=== PATIENT | male | born 1965 | race Caucasian/White ===

== ENCOUNTER 2021-06-02 15:13 | Inpatient (IN) | payer MEDICARE, SELFPAY ==
[2021-06-02 16:44] LABS: #Lymphocytes 1.8 thou/uL (1.20-3.40); #Monocytes 0.6 thou/uL (0.11-0.59); #Neutrophils 6.6 thou/uL (1.40-6.50); %Basophils 0.3 % (0.0-1.0); %Eosinophils 0.3 % (0.0-10.0); %Lymphocytes 19.7 % (21.0-51.0); %Monocytes 6.8 % (0.0-10.0); %Neutrophils 72.9 % (42.0-75.0); Hemoglobin 12.2 g/dL (14.0-18.0); Mean Corpuscular HGB CONC 34.1 g/dL (32.0-36.0); Mean Corpuscular Hemoglobin 34.7 pg (27.0-31.0); Mean Platelet Volume 6.7 fL (7.4-10.4); Platelet Count 275 thou/uL (130-400); RBC Distribution Width 12.4 % (11.5-14.5); Red Blood Cell (RBC) Count 3.52 mill/uL (4.70-6.10); White Blood Cell (WBC) Count 9.1 thou/uL (4.8-10.8)
[2021-06-02 17:02] LABS: ALT (SGPT) 13 U/L (8-55); AST (SGOT) 13 U/L (5-34); Albumin 3.5 g/dL (3.5-5.0); Alkaline Phosphatase 212 U/L (40-110); Anion Gap 17 mmol/L (10-20); BUN (Urea Nitrogen) 15 mg/dL (8.4-25.7); Bilirubin, Total 0.4 mg/dL (0.2-1.2); Calc. Creatinine Clearance 0 mL/min (70-130); Carbon Dioxide 23 mmol/L (22-29); Chloride 95 mmol/L (98-107); Globulin 3.1 g/dL (2.4-3.5); Potassium 4.9 mmol/L (3.5-5.1); Protein, Total 6.6 g/dL (6.0-8.3); Sodium 130 mmol/L (136-145)
[2021-06-02 17:19] LABS: Glucose 727 mg/dL (70-105)
[2021-06-02 18:13] LABS: Acetaminophen Less than 6.0 mcg/mL (10.0-30.0); Alcohol Less than 10 mg/dL (Less than 10); Salicylate Less than 8.0 mg/dL (15.0-30.0)
[2021-06-02 18:47] LABS: Amphetamine Not Detected (NotDetected); Barbiturates Screen Not Detected (NotDetected); Benzodiazepine Screen Not Detected (NotDetected); Cocaine Metabolite Screen Not Detected (NotDetected); Methadone Not Detected (NotDetected); Methamphetamine Not Detected (NotDetected); Opiate Screen Not Detected (NotDetected); Oxycodone Screen Not Detected (NotDetected); Phencyclidine (PCP) Not Detected (NotDetected); THC/Cannabinoid Screen Not Detected (NotDetected); Tricyclic Screen Not Detected (NotDetected)
[2021-06-02 19:06] LABS: Bilirubin Negative (Negative); Blood, Urine Negative (Negative); Clarity Clear (Clear); Glucose, Urine (Dipstick) Greater than 1000 mg/dL (Negative); Ketone, Urine 10 mg/dL (Negative); Leukocyte Negative Leu/uL (Negative); Nitrite Negative (Negative); Protein, Urine (Dipstick) Negative (Neg-Trace); Urobilinogen Normal mg/dL (Less than 2)
[2021-06-02] MEDS ORDERED: Potassium Chloride 20 MEQ/100 ML PREMIX BAG ONE (19:07)
[2021-06-02] MEDS ORDERED: INSULIN REGULAR IN 0.9 % NACL 100 UNIT/100 ML BAG ONE (19:10)
[2021-06-02] MEDS ORDERED: NS 0.9% w/ 20 MEQ KCL 1,000 ML IV SCH (19:30)
[2021-06-02 20:04] LABS: HIV (1/2) Antibody/Antigen Non-Reactive (NonReactive); HIV 1/2 INDEX 0.09 S/CO (<1.00)
[2021-06-02] MEDS ORDERED: HumaLOG 300 UNITS/3 ML VIAL SC SCH (20:30)
[2021-06-02] MEDS ORDERED: Ondansetron PF 4 MG/2 ML Vial IVP PRN (20:56)
[2021-06-02] MEDS ORDERED: Dextrose 5% in Water 1,000 ML IV PRN (20:56)
[2021-06-02] MEDS ORDERED: Dextrose 50% Abboject 50 ML SYRINGE SLOW IVP PRN (20:56)
[2021-06-02] MEDS ORDERED: Ondansetron ODT 4 MG TAB PO PRN (20:56)
[2021-06-02] MEDS ORDERED: Acetaminophen 650 MG Suppository PR PRN (20:56)
[2021-06-02] MEDS ORDERED: HYDROcodone/Acetaminophen 7.5/325 mg Tablet PO PRN (22:36)
[2021-06-02] MEDS ORDERED: HumaLOG 300 UNITS/3 ML VIAL ONE (22:59)
[2021-06-03] MEDS: HumaLOG 300 UNITS/3 ML VIAL SC PRN ×4 (00:34→22:22)
[2021-06-03] MEDS: Sodium Chloride 0.9% 1,000 ML IV SCH ×2 (00:34→10:01)
[2021-06-03 01:12] VITALS: BMI 18.2
[2021-06-03] MEDS ORDERED: Sterile Water 10 ML VIAL FS PRN (03:00)
[2021-06-03] MEDS ORDERED: Ziprasidone 20 MG VIAL IM SCH (03:00)
[2021-06-03 05:25] LABS: #Lymphocytes 1.9 thou/uL (1.20-3.40); #Monocytes 0.7 thou/uL (0.11-0.59); #Neutrophils 3.9 thou/uL (1.40-6.50); %Basophils 0.5 % (0.0-1.0); %Eosinophils 0.7 % (0.0-10.0); %Lymphocytes 29.2 % (21.0-51.0); %Monocytes 10.8 % (0.0-10.0); %Neutrophils 58.8 % (42.0-75.0); Hemoglobin 9.9 g/dL (14.0-18.0); Mean Corpuscular HGB CONC 33.1 g/dL (32.0-36.0); Mean Corpuscular Hemoglobin 33.7 pg (27.0-31.0); Mean Platelet Volume 6.7 fL (7.4-10.4); Platelet Count 216 thou/uL (130-400); RBC Distribution Width 12.7 % (11.5-14.5); Red Blood Cell (RBC) Count 2.94 mill/uL (4.70-6.10); White Blood Cell (WBC) Count 6.6 thou/uL (4.8-10.8)
[2021-06-03 05:48] LABS: Anion Gap 11 mmol/L (10-20); BUN (Urea Nitrogen) 12 mg/dL (8.4-25.7); Calc. Creatinine Clearance 111 mL/min (70-130); Calcium 8.6 mg/dL (7.8-10.44); Carbon Dioxide 25 mmol/L (22-29); Chloride 106 mmol/L (98-107); Glucose 95 mg/dL (70-105); Potassium 3.6 mmol/L (3.5-5.1); Sodium 138 mmol/L (136-145)
[2021-06-03 06:40] LABS: Hemoglobin A1c Greater than 14.0 % (4.0-6.0)
[2021-06-03] MEDS ORDERED: NPH, Human Insulin Isophane 300 UNIT/3 ML VIAL SC SCH ×2 (08:45)
[2021-06-03] MEDS: Enoxaparin Sodium 40 MG/0.4 ML SYRINGE SC SCH (10:03)
[2021-06-03 14:33] LABS: SARS-CoV-2 PCR by NAA Not Detected (NotDetected)
[2021-06-03] MEDS ORDERED: HumaLOG 300 UNITS/3 ML VIAL SC SCH (15:30)
[2021-06-03] MEDS ORDERED: Gabapentin 100 MG CAP PO PRN (16:38)
[2021-06-03] MEDS ORDERED: Colchicine 0.6 MG TAB PO SCH (17:45)
[2021-06-03] MEDS: Acetaminophen 325 MG TAB PO PRN (22:21)
[2021-06-03] MEDS: NPH, Human Insulin Isophane 300 UNIT/3 ML VIAL SC SCH (22:21)
[2021-06-03] MEDS: Colchicine 0.6 MG TAB PO SCH (22:21)
[2021-06-04] MEDS: HumaLOG 300 UNITS/3 ML VIAL SC PRN ×5 (00:06→18:17)
[2021-06-04 05:29] LABS: Thyroid Stimulating Hormone 3.4116 uIU/mL (0.35-4.94)
[2021-06-04] MEDS: NPH, Human Insulin Isophane 300 UNIT/3 ML VIAL SC SCH ×2 (09:00→20:38)
[2021-06-04] MEDS: Enoxaparin Sodium 40 MG/0.4 ML SYRINGE SC SCH (09:00)
[2021-06-04] MEDS: Colchicine 0.6 MG TAB PO SCH ×2 (09:00→20:38)
[2021-06-04] MEDS ORDERED: metFORMIN 500 MG TAB PO SCH (09:45)
[2021-06-04] MEDS ORDERED: NPH, Human Insulin Isophane 300 UNIT/3 ML VIAL SC SCH (09:45)
[2021-06-04] MEDS: HumaLOG 300 UNITS/3 ML VIAL SC SCH ×2 (11:18→16:14)
[2021-06-04] MEDS ORDERED: Furosemide 20 MG/2 ML VIAL SLOW IVP SCH (12:45)
[2021-06-04] MEDS: metFORMIN 500 MG TAB PO SCH (16:14)
[2021-06-04] MEDS ORDERED: Aspirin 81 mg Enteric Coated Tablet PO SCH (16:45)
[2021-06-04] MEDS: Acetaminophen 325 MG TAB PO PRN (20:42)
[2021-06-05] MEDS: Acetaminophen 325 MG TAB PO PRN (02:45)
[2021-06-05] MEDS: Colchicine 0.6 MG TAB PO SCH (08:05)
[2021-06-05] MEDS: Enoxaparin Sodium 40 MG/0.4 ML SYRINGE SC SCH (08:05)
[2021-06-05] MEDS: metFORMIN 500 MG TAB PO SCH ×2 (08:05→17:39)
[2021-06-05] MEDS: NPH, Human Insulin Isophane 300 UNIT/3 ML VIAL SC SCH (08:07)
[2021-06-05] MEDS: HumaLOG 300 UNITS/3 ML VIAL SC SCH ×3 (08:09→17:38)
[2021-06-05] MEDS ORDERED: Aspirin 81 mg Enteric Coated Tablet PO SCH (09:00)
[2021-06-05] MEDS: HumaLOG 300 UNITS/3 ML VIAL SC PRN ×2 (12:39→17:39)
[2021-06-05 16:49] VITALS: BP 111/66; TEMP 98.4
[2021-06-05] MEDS ORDERED: Gabapentin 300 MG CAP PO SCH (21:00)
== END 2021-06-05 18:37 | disposition home or self-care (01) | DRG 638 ==
LOC: ERS 15:13 → ERHOLD 20:22 → 2NO 06-03 00:09 → T4-A 06-04 10:53
PROVIDERS: ADMIT Student in an Organized Health Care Education/Training Program; ATTEND Family Medicine
DX: E11.10 Type 2 diabetes mellitus with ketoacidosis without coma (principal); E87.1 Hypo-osmolality and hyponatremia; D53.9 Nutritional anemia, unspecified; F17.210 Nicotine dependence, cigarettes, uncomplicated; E11.51 Type 2 diabetes mellitus with diabetic peripheral angiopathy without gangrene; M54.2 Cervicalgia; E11.40 Type 2 diabetes mellitus with diabetic neuropathy, unspecified; F29 Unspecified psychosis not due to a substance or known physiological condition; Z98.890 Other specified postprocedural states; Z71.6 Tobacco abuse counseling
CPT/HCPCS: 36415; 36416; 70450; 71045; 72050; 72125; 80048; 80053; 80306; 80307; 81003; 82010; 82607; 82746; 83036; 83605; 83880; 84443; 84484; 84550; 85025; 87040; 87389; 93005; 93923; J1650; J1815; J1940; J3480; J3486; J7050; U0003; U0005

== ENCOUNTER 2021-07-24 13:16 | Emergency (ER) | payer MEDICARE ==
[2021-07-24] MEDS ORDERED: Naproxen 500 MG TAB ONE (14:06)
== END 2021-07-24 14:15 | disposition home or self-care (01) ==
LOC: ERS 13:16
DX: G62.9 Polyneuropathy, unspecified (principal); M25.552 Pain in left hip; M25.551 Pain in right hip; M25.512 Pain in left shoulder; M25.511 Pain in right shoulder; G89.29 Other chronic pain; E11.9 Type 2 diabetes mellitus without complications; E78.5 Hyperlipidemia, unspecified; F17.210 Nicotine dependence, cigarettes, uncomplicated

== ENCOUNTER 2021-07-24 22:10 | Emergency (ER) | payer MEDICARE ==
[2021-07-25] MEDS ORDERED: Dicyclomine 20 MG TAB ONE (02:44)
[2021-07-25] MEDS ORDERED: Ondansetron ODT 4 MG TAB ONE (02:44)
== END 2021-07-25 03:43 | disposition home or self-care (01) ==
LOC: ERS 22:10
DX: R11.0 Nausea (principal); R19.7 Diarrhea, unspecified; E11.9 Type 2 diabetes mellitus without complications; E78.5 Hyperlipidemia, unspecified; F17.210 Nicotine dependence, cigarettes, uncomplicated
CPT/HCPCS: 36416; 99283; Q0162

== ENCOUNTER 2021-08-11 18:54 | Emergency (ER) | payer MEDICARE ==
[2021-08-11 19:59] LABS: #Basophils 0.1 thou/uL (0.0-0.2); #Eosinphils 0.2 thou/uL (0.0-0.7); #Lymphocytes 2.2 thou/uL (1.20-3.40); #Neutrophils 4.2 thou/uL (1.40-6.50); %Basophils 0.8 % (0.0-1.0); %Lymphocytes 28.8 % (21.0-51.0); %Monocytes 12.9 % (0.0-10.0); %Neutrophils 55.4 % (42.0-75.0); Hemoglobin 13.5 g/dL (14.0-18.0); Mean Corpuscular HGB CONC 32.3 g/dL (32.0-36.0); Mean Corpuscular Hemoglobin 30.6 pg (27.0-31.0); Mean Corpuscular Volume 94.8 fL (78.0-98.0); Mean Platelet Volume 7.8 fL (7.4-10.4); Platelet Count 175 thou/uL (130-400); RBC Distribution Width 13.3 % (11.5-14.5); Red Blood Cell (RBC) Count 4.41 mill/uL (4.70-6.10); White Blood Cell (WBC) Count 7.5 thou/uL (4.8-10.8)
[2021-08-11 20:20] LABS: ALT (SGPT) 17 U/L (8-55); AST (SGOT) 19 U/L (5-34); Albumin 4.1 g/dL (3.5-5.0); Alkaline Phosphatase 89 U/L (40-110); Anion Gap 13 mmol/L (10-20); BUN (Urea Nitrogen) 17 mg/dL (8.4-25.7); Bilirubin, Total 0.6 mg/dL (0.2-1.2); CK (CPK) 50 U/L (30-200); Calc. Creatinine Clearance 0 mL/min (70-130); Carbon Dioxide 26 mmol/L (22-29); Chloride 104 mmol/L (98-107); Globulin 2.7 g/dL (2.4-3.5); Glucose 237 mg/dL (70-105); Lipase 38 U/L (8-78); Potassium 3.9 mmol/L (3.5-5.1); Protein, Total 6.8 g/dL (6.0-8.3); Sodium 139 mmol/L (136-145)
== END 2021-08-11 21:15 | disposition home or self-care (01) ==
LOC: ERS 18:54
DX: T67.5XXA Heat exhaustion, unspecified, initial encounter (principal); Y09 Assault by unspecified means; F17.210 Nicotine dependence, cigarettes, uncomplicated
CPT/HCPCS: 80053; 82550; 83690; 85025; 94760

== ENCOUNTER 2021-08-12 15:30 | Emergency (ER) | payer MEDICARE ==
[2021-08-12 16:47] LABS: #Basophils 0.1 thou/uL (0.0-0.2); #Eosinphils 0.1 thou/uL (0.0-0.7); #Lymphocytes 2.6 thou/uL (1.20-3.40); #Monocytes 1.2 thou/uL (0.11-0.59); #Neutrophils 5.5 thou/uL (1.40-6.50); %Basophils 0.7 % (0.0-1.0); %Eosinophils 1.4 % (0.0-10.0); %Lymphocytes 27.5 % (21.0-51.0); %Monocytes 12.6 % (0.0-10.0); %Neutrophils 57.9 % (42.0-75.0); Hemoglobin 13.8 g/dL (14.0-18.0); Mean Corpuscular HGB CONC 32.4 g/dL (32.0-36.0); Mean Corpuscular Hemoglobin 30.6 pg (27.0-31.0); Mean Corpuscular Volume 94.6 fL (78.0-98.0); Mean Platelet Volume 7.5 fL (7.4-10.4); Platelet Count 217 thou/uL (130-400); RBC Distribution Width 13.4 % (11.5-14.5); Red Blood Cell (RBC) Count 4.51 mill/uL (4.70-6.10); White Blood Cell (WBC) Count 9.5 thou/uL (4.8-10.8)
[2021-08-12 17:09] LABS: ALT (SGPT) 17 U/L (8-55); AST (SGOT) 16 U/L (5-34); Albumin 4.4 g/dL (3.5-5.0); Alkaline Phosphatase 94 U/L (40-110); Anion Gap 14 mmol/L (10-20); BUN (Urea Nitrogen) 15 mg/dL (8.4-25.7); Bilirubin, Total 0.6 mg/dL (0.2-1.2); CK (CPK) 55 U/L (30-200); Calc. Creatinine Clearance 0 mL/min (70-130); Calcium 9.9 mg/dL (7.8-10.44); Carbon Dioxide 24 mmol/L (22-29); Chloride 104 mmol/L (98-107); Globulin 2.5 g/dL (2.4-3.5); Glucose 203 mg/dL (70-105); Potassium 4.1 mmol/L (3.5-5.1); Protein, Total 6.9 g/dL (6.0-8.3); Sodium 138 mmol/L (136-145)
== END 2021-08-12 17:04 | disposition left against medical advice (07) ==
LOC: ERS 15:30
DX: Z53.21 Procedure and treatment not carried out due to patient leaving prior to being seen by health care provider (principal)
CPT/HCPCS: 36415; 71045; 80053; 82550; 84484; 85025